=== PATIENT | male | born 1930 | race Caucasian/White ===

== ENCOUNTER → 2017-04-05 | Outpatient (CLI) | payer MEDICARE, BC, OTHER ==
[~2017-04-05] MED LIST: ASPI-496 PO; CARV12.52 PO; CARV6.252 PO; DULO30CA2 PO; ERGO500017 PO; INSU100C5 SQ-INSULIN; INSU100V8 SQ; ISTALOL; LEVO1CAP3 PO; PREG200C PO; RAMI10CA PO; SIMV20TA3 PO; TICA90TA PO; TRAV5DRO EACHEYE; ZOLP5TAB6 PO
== END | disposition home or self-care (01) ==
LOC: CVU 06:46
PROVIDERS: ATTEND Nurse Practitioner Family
DX: I70.203 Unspecified atherosclerosis of native arteries of extremities, bilateral legs (principal); I74.3 Embolism and thrombosis of arteries of the lower extremities; E11.9 Type 2 diabetes mellitus without complications; Z95.5 Presence of coronary angioplasty implant and graft
CPT/HCPCS: 93922; 93925

== ENCOUNTER 2017-04-17 06:21 | Day surgery (SDC) | payer MEDICARE, BC, OTHER ==
[2017-04-16 12:34] LABS: ASPARTATE AMINO TRANSFERASE 19 U/L (15-37); BLOOD UREA NITROGEN 17 mg/dL (7-18)
[~2017-04-17] VITALS: Ht 177.8 cm; Wt 83.0 kg
[2017-04-17 08:03] VITALS: BP 115/71
[2017-04-17] MEDS ORDERED: INSU100V8 SQ (08:09)
[2017-04-17] MEDS ORDERED: CLOP75TA22 PO (08:09)
[2017-04-17] MEDS ORDERED: VITAMIN B PO (08:09)
[2017-04-17] MEDS ORDERED: MIDAZOLAM 1 MG/ML, 5ML ONE (08:10)
[2017-04-17] MEDS ORDERED: PROTAMINE SULFATE 10 MG/ML, 25ML ONE (08:10)
[2017-04-17] MEDS ORDERED: SODIUM CHLORIDE 0.9% 1,000 ML IV SCH (08:10)
[2017-04-17] MEDS ORDERED: FENTANYL PF 100 MCG/2ML ONE (08:11)
[2017-04-17] MEDS ORDERED: HEPARIN 1,000 UNITS/ML, 10ML ONE (08:11)
[2017-04-17] MEDS ORDERED: NITROGLYCERIN 5 MG/ML, 10ML ONE (08:11)
[2017-04-17] MEDS ORDERED: NALOXONE 1 MG/ML, 2ML ONE (08:11)
[2017-04-17] MEDS ORDERED: FLUMAZENIL 0.1 MG/1 ML, 5ML ONE (08:11)
[2017-04-17] MEDS ORDERED: LIDOCAINE 2%, 20ML ONE (08:41)
[2017-04-17] MEDS ORDERED: VISIPAQUE 270 MG/ML, 150ML BOTTLE ONE (09:00)
== END 2017-04-17 13:00 | disposition home or self-care (01) ==
LOC: OUT 06:21
PROVIDERS: ATTEND Internal Medicine Cardiovascular Disease
DX: I70.212 Atherosclerosis of native arteries of extremities with intermittent claudication, left leg (principal); I10 Essential (primary) hypertension; E11.42 Type 2 diabetes mellitus with diabetic polyneuropathy; E78.2 Mixed hyperlipidemia; Z87.891 Personal history of nicotine dependence; Z79.4 Long term (current) use of insulin; Z88.6 Allergy status to analgesic agent
CPT/HCPCS: 36415; 37224; 37228; 37232; 71020; 75625; 75716; 80053; 82962; 85025; 99156; 99157; C1725; C1760; C1769; C1884; C1894; C2623; J1644; J2250; J3010; J3490; J7030; Q9966; J2720; J2310

== ENCOUNTER → 2017-10-09 | Outpatient (CLI) | payer MEDICARE, BC, OTHER ==
[~2017-10-09] MED LIST changes: +CLOP75TA52 PO; +VITAMIN B PO
== END | disposition home or self-care (01) ==
LOC: CVU 06:56
PROVIDERS: ATTEND Internal Medicine Cardiovascular Disease
DX: I70.203 Unspecified atherosclerosis of native arteries of extremities, bilateral legs (principal); E11.9 Type 2 diabetes mellitus without complications; Z79.4 Long term (current) use of insulin; Z95.820 Peripheral vascular angioplasty status with implants and grafts
CPT/HCPCS: 93922; 93925

== ENCOUNTER 2018-10-04 17:25 | Inpatient (IN) | payer MEDICARE, BC, OTHER ==
[~2018-10-04] VITALS: Ht 177.8 cm; Wt 88.0 kg
[~2018-10-04 17:25] MED LIST changes: -RAMI10CA PO; +RAMI10CA59 PO
[2018-10-04] MEDS ORDERED: KETOROLAC 30 MG/1 ML ONE (18:23)
[2018-10-04] MEDS ORDERED: KETOROLAC 30 MG/1 ML IVPush ONE (18:30)
[2018-10-04 18:55] LABS: BASOPHILS # (AUTO) 0.06 x10^3/uL (0-0.1); BASOPHILS % (AUTO) 1 % (0-1); EOSINOPHILS # (AUTO) 0.24 x10^3/uL (0-0.4); EOSINOPHILS % (AUTO) 3 % (1-7); LYMPHOCYTES # (AUTO) 1.12 x10^3/uL (1-3.4); LYMPHOCYTES % (AUTO) 11 % (22-44); MD NO; MEAN CORPUSCULAR HEMOGLOBIN 28.7 pg (27.5-34.5); MEAN CORPUSCULAR HGB CONC 32.9 g/dL (33.2-36.2); MEAN CORPUSCULAR VOLUME 87.2 fL (81-97); MEAN PLATELET VOLUME 8.9 fL (7.4-10.4); MONOCYTES # (AUTO) 1.41 x10^3/uL (0.2-0.8); MONOCYTES % (AUTO) 14 % (2-9); NEUTROPHILS # (AUTO) 6.97 x10^3/uL (1.8-6.8); NEUTROPHILS % (AUTO) 71 % (42-75); PLATELET COUNT 242 x10^3/uL (130-400); RED BLOOD COUNT 5.19 x10^6/uL (4.38-5.82); RED CELL DISTRIBUTION WIDTH 15.1 % (9.4-14.8)
[2018-10-04 19:08] LABS: ALANINE AMINOTRANSFERASE 23 U/L (12-78); ALBUMIN 3.5 g/dL (3.4-5.0); ANION GAP 9 mmol/L (5-15); CALCIUM 8.8 mg/dL (8.5-10.1); CHLORIDE 100 mmol/L (98-107); CREATININE 1.05 mg/dL (0.7-1.3)
[2018-10-04 19:10] LABS: ALKALINE PHOSPHATASE 101 U/L (45-117); BILIRUBIN,TOTAL 0.6 mg/dL (0.2-1.0); TOTAL PROTEIN 7.7 g/dL (6.4-8.2)
[2018-10-04 19:27] LABS: MICROSCOPIC INDICATED
[2018-10-04 19:32] LABS: CULTURE INDICATED? YES
[2018-10-04] MEDS ORDERED: CEFTRIAXONE PMX 1GM/50ML 50 ML IV ONE (20:30)
[2018-10-04] MEDS ORDERED: CEFTRIAXONE 1,000 MG IV ONE (20:30)
[2018-10-04] MEDS ORDERED: TIMO2.5D3 EACHEYE (20:34)
[2018-10-04] MEDS ORDERED: INSU100I11 SQ (20:34)
[2018-10-04] MEDS ORDERED: CEFTRIAXONE PMX 1GM/50ML 50 ML ONE (20:36)
[2018-10-04] MEDS ORDERED: ONDANSETRON ODT 4 MG PO ONE (21:00)
[2018-10-04] MEDS ORDERED: MORPHINE SULFATE 4 MG/ML, 1ML IVPush ONE ×2 (21:00)
[2018-10-04] MEDS ORDERED: ONDANSETRON 2MG/ML, 2ML IVPush PRN (21:30)
[2018-10-04] MEDS ORDERED: MORPHINE SULFATE 4 MG/ML, 1ML IVPush PRN (21:30)
[2018-10-04] MEDS ORDERED: CHOL500050 PO ×2 (22:28→22:51)
[2018-10-04] MEDS ORDERED: INSU100C SQ-INSULIN (22:38)
[2018-10-04 22:46] VITALS: BP 157/70
[2018-10-04] MEDS ORDERED: POLYETHYLENE GLYCOL 17 GM PACKET PO PRN (23:30)
[2018-10-04] MEDS ORDERED: PREGABALIN 200 MG CAPSULE PO SCH (23:30)
[2018-10-04] MEDS ORDERED: KETOROLAC 30 MG/1 ML IV PRN (23:30)
[2018-10-04] MEDS ORDERED: hydrALAzine 20 MG/ML, 1ML IVPush PRN (23:30)
[2018-10-04] MEDS ORDERED: DEXTROSE 50%, 50ML SYRINGE IVPush PRN (23:30)
[2018-10-04] MEDS ORDERED: GLUCAGON 1 MG IM PRN (23:30)
[2018-10-04] MEDS ORDERED: INSULIN GLARGINE 100 UNITS/ML, PEN SQ-INSULIN SCH (23:30)
[2018-10-04] MEDS ORDERED: TRAZODONE 50MG TABLET PO PRN (23:30)
[2018-10-04] MEDS ORDERED: DEXTROSE 4 GM TAB.CHEW PO PRN (23:30)
[2018-10-04] MEDS ORDERED: DOCUSATE 100 MG CAPSULE PO PRN (23:30)
[2018-10-04] MEDS ORDERED: LATANOPROST OPHTH 0.005%, 2.5ML EACHEYE SCH (23:30)
[2018-10-04] MEDS ORDERED: morphine SULFATE 10 MG/ML, 1ML IVPush PRN (23:30)
[2018-10-04] MEDS ORDERED: ENALAPRILAT 1.25 MG/ML, 2ML IVPush PRN (23:30)
[2018-10-05 01:08] VITALS: BP 144/61
[2018-10-05] MEDS ORDERED: CARVEDILOL 6.25 MG TABLET PO SCH ×2 (06:00→09:00)
[2018-10-05 06:37] VITALS: BP 159/78
[2018-10-05] MEDS ORDERED: INSULIN GLARGINE 100 UNITS/ML, PEN SQ-INSULIN SCH ×3 (08:00→09:00)
[2018-10-05] MEDS ORDERED: RAMIPRIL 10 MG CAPSULE PO SCH (09:00)
[2018-10-05] MEDS ORDERED: RAMIPRIL 2.5 MG CAPSULE PO SCH (09:00)
[2018-10-05] MEDS ORDERED: ASPIRIN 81 MG TABLET CHEW PO SCH (09:00)
[2018-10-05] MEDS ORDERED: CLOPIDOGREL 75 MG TABLET PO SCH (09:00)
[2018-10-05] MEDS ORDERED: TIMOLOL MALEATE EACHEYE SCH (09:00)
[2018-10-05] MEDS: INSULIN LISPRO 100 UNITS/ML, PEN SQ-INSULIN SCH ×2 (09:00→11:36)
[2018-10-05] MEDS ORDERED: ASPIRIN 81 MG TABLET EC PO SCH (09:00)
[2018-10-05] MEDS ORDERED: SENNA/DOCUSATE TABLET PO SCH (09:00)
[2018-10-05] MEDS ORDERED: SODIUM CHLORIDE FLUSH 10ML SYR IVF SCH (09:00)
[2018-10-05] MEDS ORDERED: TIMOLOL OPHTH 0.5%, 5ML EACHEYE SCH (09:00)
[2018-10-05] MEDS: ACETAMINOPHEN 325 MG TABLET PO PRN ×2 (09:13→14:15)
[2018-10-05] MEDS ORDERED: PREGABALIN 100 MG CAPSULE ONE (09:17)
[2018-10-05] MEDS ORDERED: CEFD300C37 PO (11:08)
[2018-10-05 13:27] VITALS: BP 133/70
[2018-10-05] MEDS ORDERED: CEFTRIAXONE PMX 1GM/50ML 50 ML IV SCH (21:00)
[2018-10-05] MEDS ORDERED: DULOXETINE 30 MG CAPSULE.DR PO SCH (21:00)
[2018-10-05] MEDS ORDERED: TRAVOPROST OPHTH 0.004%, 2.5ML EACHEYE SCH (21:00)
[2018-10-05] MEDS ORDERED: PREGABALIN 100 MG CAPSULE PO SCH (23:23)
[2018-10-17] MEDS ORDERED: ERGOCALCIFEROL 50,000 UNIT CAPSULE PO SCH (09:00)
== END 2018-10-05 15:29 | disposition home or self-care (01) | DRG 690 ==
LOC: ED 20:49 → EDIP 21:02 → 3NW 21:36
PROVIDERS: ADMIT Family Medicine; ATTEND Family Medicine
DX: N30.91 Cystitis, unspecified with hematuria (principal); K80.20 Calculus of gallbladder without cholecystitis without obstruction; N20.0 Calculus of kidney; I25.10 Atherosclerotic heart disease of native coronary artery without angina pectoris; I10 Essential (primary) hypertension; H40.9 Unspecified glaucoma; E78.5 Hyperlipidemia, unspecified; E11.51 Type 2 diabetes mellitus with diabetic peripheral angiopathy without gangrene; M62.838 Other muscle spasm; Z88.5 Allergy status to narcotic agent; Z87.891 Personal history of nicotine dependence; Z87.442 Personal history of urinary calculi; Z86.73 Personal history of transient ischemic attack (TIA), and cerebral infarction without residual deficits; K59.00 Constipation, unspecified
CPT/HCPCS: 36415; 74021; 74176; 80053; 81001; 82962; 85025; 87077; 87086; 87186; 96365; 96375; G0378; J0696; J1885; J1815; J2270

== ENCOUNTER → 2018-12-30 | Outpatient (CLI) | payer MEDICARE, BC, OTHER ==
[~2018-12-30] MED LIST changes: +CEFD300C37 PO; +CHOL500050 PO; +INSU100C SQ-INSULIN; +INSU100I11 SQ; +REGADENOSON 0.4 MG/5 ML SYRINGE ONE; +TIMO2.5D3 EACHEYE
== END | disposition home or self-care (01) ==
LOC: CFH 07:45
PROVIDERS: ATTEND Internal Medicine Cardiovascular Disease
DX: I70.291 Other atherosclerosis of native arteries of extremities, right leg (principal); E11.9 Type 2 diabetes mellitus without complications; I10 Essential (primary) hypertension
CPT/HCPCS: 78452; 93017; 93880; A9502; J2785

== ENCOUNTER 2019-04-14 08:36 | Outpatient (CLI) | payer MEDICARE, BC, OTHER ==
[~2019-04-14 08:36] MED LIST changes: -REGADENOSON 0.4 MG/5 ML SYRINGE ONE
== END 2019-04-14 23:59 | disposition home or self-care (01) ==
LOC: CFH 08:36
PROVIDERS: ATTEND Nurse Practitioner Family
DX: I08.3 Combined rheumatic disorders of mitral, aortic and tricuspid valves (principal); I10 Essential (primary) hypertension; E11.9 Type 2 diabetes mellitus without complications; E78.5 Hyperlipidemia, unspecified
CPT/HCPCS: 93306